=== PATIENT | female | born 1970 | race Caucasian/White ===

== ENCOUNTER 2020-08-20 12:24 | Emergency (ER) | payer OTHER, SELFPAY ==
[2020-08-20 12:30] VITALS: BP 130/85; PULSE 89; RESP 20; TEMP 36.5; O2SAT 100
--- NOTE | 2020-08-20 13:39 | PC.NURSE ---
Pt came to nurses station and stated I have to go I just received a call my mom just fell. I will leaf size picker my scripts at [facility]. I do not want the toradol shot. Pt left without discharge paperwork.
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
== END 2020-08-20 13:44 | disposition home or self-care (01) ==
PROVIDERS: Emergency Provider Emergency Medicine
DX: M25.511 Pain in right shoulder (principal); M25.551 Pain in right hip; G89.21 Chronic pain due to trauma
CPT/HCPCS: 99283